=== PATIENT | male | born 2005 | race American Indian/Alaskan Native ===

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

== ENCOUNTER 2025-01-25 09:28 | Emergency (ER) | payer MEDICAID ==
[~2025-01-25] VITALS: Ht 175.3 cm; Wt 79.7 kg
[2025-01-25 09:44] VITALS: BP 129/74; PULSE 80; RESP 18; TEMP 96.9; O2SAT 98
--- NOTE | 2025-01-25 10:20 | Physician Documentation ---
History of Present Illness ~ Chief Complaint: Ankle pain Stated Complaint: L ANKLE PAIN Time Seen by MD: 09:57 HPI This is a 19-year-old male who presents with left ankle swelling and dorsal hindfoot pain when walking for the last day after rolling his ankle, patient reports that he is able to walk and bear weight however he must walk on his toes on the left foot otherwise it is painful. Patient reports no numbness to the foot and reports no other acute symptoms or concerns. Medication Reconciliation Allergies: Coded Allergies: No Known Allergies (Unverified , 01/25/25) Past Medical History Past Medical History: No Pertinent History Review of Systems ROS As stated above in the HPI, otherwise all systems are reviewed and negative. Physical Exam Vital Signs: Temperature: 96.9, Source: Temporal, Heart Rate: 80, Respiratory Rate: 18, BP: 129/74, Pulse Oximetry: 98, Weight: 79.700 Oxygen Flow Rate: 0 Physical Exam VITALS: Reviewed and as above. GENERAL: Alert, nontoxic appearing, no apparent distress. RESPIRATORY: No increased work of breathing, no respiratory distress, speaking in full clear sentences CV: Brisk capillary refill of left foot, left pedal pulse intact and strong MUSCULOSKELETAL: Mild swelling to left ankle, ankle nontender to palpation, pain elicited at dorsal hindfoot with direct palpation and dorsiflexion of the foot SKIN: No ecchymosis of ankle or foot, no erythema Progress Results/Orders Results/Orders Orders - LILI KEYES Ortho Orders (01/25/25 10:28) Vital Signs 01/25/25 09:44 Temp 96.9 Pulse 80 Resp 18 B/P (MAP) 129/74 Pulse Ox 98 O2 Flow Rate 0 EKG/XRAY/CT/US/VASC/MRI Bone/Soft Tissue X-Ray (Ext.) : Additional Comment Exam: ANKLE, COMPLETE(3VW MIN) DI ANKLE, COMPLETE(3VW MIN), INDICATION: pain LEFT ANKLE TECHNICAL DATA:Frontal , oblique and lateral views were obtained of the left ankle. COMPARISON: None FINDINGS: No fracture is identified. Joint spaces are maintained. Alignment is anatomic. Soft tissues are within normal limit. IMPRESSION: No acute fracture or dislocation of the left ankle. Electronically Signed by:MALA GALO MD Date & Time: 01/25/25 1023 Dictated by: MALA GALO MD Dictation date and time: 01/25/25 1023 I have reviewed and agree with the radiology report. I have reviewed and interpreted the imaging as: No fracture or dislocation Medical Decision Making Additional information obtaine: N/A Findings This 19-year-old male presented with left ankle swelling and left hindfoot pain after rolling his ankle last night, physical exam demonstrated minimal swelling to the ankle and hindfoot tenderness on palpation and dorsiflexion foot, it is reassuring patient is able to walk and bear weight and describes pain as mild, additionally reassuring the foot is neurovascularly intact and there was no ecchymosis or erythema. Imaging did not demonstrate evidence of fracture or dislocation. Patient is otherwise well-appearing and appropriate for outpatient follow up, we will treat with rest, ice, compression, and elevation. Plan discussed with the patient who agrees. Patient provided return precautions, follow up instructions, and home care instructions which he verbalized understanding of. General Diff Dx:Considerations: Include: Abrasion, Fracture, Neurovascular injury, Open fracture, Sprain Knee Diff Dx:Considerations: Unlikely: Abrasion, Arthritis, Contusion, DJD, Fracture-femur, Fracture-fibula, Fracture-patella, Fracture-tibia, Gout, Hematoma, Laceration, Meniscus injury, Neurovascular injury, Open fracture, Rheumatoid arthritis, Septic, Sprain, Sprain-MCL, Sprain-LCL, Sprain-ACL, Sprain-PCL, Other Ankle Diff Dx:Considerations: Include: DJD, Fracture-metatarsal, Fracture-f ibula, Fracture-tarsal, Gout, Hematoma, Neurovascular injury, Sprain, Septic Foot Diff Dx:Considerations: Include: Arthritis, Cellulitis, Ingrown toenail Toe Diff Dx:Considerations: Unlikely: Abrasion, Cellulitis, Contusion, Dislocation, Felon, Fracture, Hematoma, Laceration, Neurovascular injury, Open fracture, Paronychia, Subungual hematoma, Other Departure Time of Disposition: 10:22 Disposition: 01 HOME / SELF CARE / HOMELESS Impression: Primary Impression: Ankle pain, left Qualified Codes: M25.572 - Pain in left ankle and joints of left foot Condition: Improved Discharge Instructions: RICE Therapy for Routine Care of Injuries, [id number] Additional Instructions: Please see the attached home care instructions to rest your ankle, please use the provided crutches to aid in resting your ankle. You may use ibuprofen and or Tylenol as needed for pain. Please follow up with your primary care provider in the next few days. Please return to the emergency department for any new or worsening concerning symptoms. Referrals: NO PRIMARY CARE PROVIDER (PCP) Education Educated: Patient Educated regarding: diagnosis, treatment, prognosis, need for follow up Signature Scribe Signature: No Scribe Attestation: The note accurately reflects work and decisions made by me.PRIETO Caceres 01/25/25 20:17 Parts of this note were created using [employer] voice recognition software program. While efforts were made to correct any mistakes made by this voice recognition software program, nonsensical phrases may remain in this note. In addition, there may be errors and syntax, grammar, content and spelling. LILI KEYES Jan 25, 2025 10:20
--- NOTE | 2025-01-25 10:25 | RADIOLOGY REPORT ---
DI ANKLE, COMPLETE(3VW MIN), INDICATION: pain LEFT ANKLE TECHNICAL DATA:Frontal , oblique and lateral views were obtained of the left ankle. COMPARISON: None FINDINGS: No fracture is identified. Joint spaces are maintained. Alignment is anatomic. Soft tissues are within normal limit. IMPRESSION: No acute fracture or dislocation of the left ankle.
== END 2025-01-25 10:47 | disposition home or self-care (01) ==
LOC: ER 09:29
DX: M25.572 Pain in left ankle and joints of left foot (principal)
CPT/HCPCS: 73610; 99283; A6449